=== PATIENT | female | born 1990 | race Caucasian/White ===

== ENCOUNTER 2017-04-04 09:59 | Emergency (ER) | payer SELFPAY ==
[2017-04-04 10:20] VITALS: TEMP 99.9
[2017-04-04] MEDS ORDERED: SODIUM CHLORIDE 0.9% 1000ML 1,000 ML IVS ONE (10:23)
[2017-04-04] MEDS ORDERED: PROMETHAZINE HCL INJ 25 MG in SODIUM CHLORIDE 0.9% 50ML 50 ML IVPB ONE (10:24)
[2017-04-04] MEDS ORDERED: PROMETHAZINE HCL INJ 25 MG/ML VIAL ONE (10:40)
[2017-04-04] MEDS ORDERED: SODIUM CHLORIDE 0.9% 50ML 50 ML ONE (10:41)
--- NOTE | 2017-04-04 10:52 | CT ---
EXAM DESCRIPTION: CT abdomen and pelvis without contrast CLINICAL HISTORY: Periumbilical mass. Abdominal pain COMPARISON: None Available. TECHNIQUE: Noncontrast spiral CT with coronal and sagittal reformatted images. This exam was performed according to our departmental dose-optimization program, which includes automated exposure control, adjustment of the mA and/or kV according to patient size and/or use of iterative reconstruction technique. FINDINGS: Visualized lung bases are clear. Heart size is normal No abnormality of the liver. Previous cholecystectomy. No biliary duct dilation No abnormality of the spleen, pancreas or adrenal glands 3 tiny 1 mm nonobstructing calculi lower pole right kidney. No other renal stone disease. No hydronephrosis, ureterolithiasis or bladder calculus Pelvic viscera normal. No pelvic soft tissue mass lesion, adenopathy or free fluid. Normal appearance of the terminal ileum and appendix. Moderate amount of stool in the colon, constipation. No mechanical bowel obstruction. No mass lesion or inflammatory process. Omentum, small bowel mesentery and retroperitoneum are unremarkable. No anterior abdominal wall hernia. No periumbilical cutaneous, subcutaneous or intra-abdominal wall mass lesion IMPRESSION: 3 tiny nonobstructing calculi lower pole right kidney Constipation. No acute inflammatory process identified in the abdomen or pelvis Electronically signed by: José Miguel Mendiola MD 04/04/2017 10:51 AM CDT
[2017-04-04] MEDS ORDERED: LIDOCAINE VIS-MYLANTA 30 ML UD PO ONE (11:01)
[2017-04-04] MEDS ORDERED: HYDROmorphone HCL INJ 2 MG/ML VIAL IV ONE (11:29)
[2017-04-04] MEDS ORDERED: ACETAMINOPHEN 325 MG TAB PO ONE (11:50)
[2017-04-04] MEDS ORDERED: PIPERACILLIN/TAZOBACTAM 3.375 GM in SODIUM CHLORIDE 0.9% 100ML 100 ML IVPB ONE (11:50)
[2017-04-04] MEDS ORDERED: SODIUM CHLORIDE 0.9% 100ML 100 ML IVPB ONE (11:58)
[2017-04-04] MEDS ORDERED: PIPERACILLIN/TAZOBACTAM 3.375 GM VIAL IVPB ONE (11:58)
[2017-04-04] MEDS ORDERED: levoFLOXacin 500 MG TAB PO ONE (14:50)
[2017-04-04] MEDS ORDERED: metroNIDAZOLE IV PREMIX 500MG 500 MG in PREMIX BAG 1 BAG IVPB ONE (14:50)
--- NOTE | 2017-04-04 14:53 | ED.PDOC ---
History of Present Illness - General Chief Complaint: Abdominal Pain Stated Complaint: abdomial pain Time Seen by Provider: 04/04/17 10:02 Source: patient Exam Limitations: no limitations - History of Present Illness Initial Comments: the patient is a 27-year-old female presenting to the emergency room secondary to abdominal painstarting yesterday evening but getting worse throughout the night. At around 4 AM this morning she started throwing up. She also noted some increased vaginal discharge over the previous weeks. Abdominal pain is somewhat roving. It is primarily in the lower abdomen but there is some mild left periumbilical discomfort as well. The patient does have some voluntary guarding. There is a questionable nodule just left of the umbilicus. She has been passing gas and having bowel movements. No syncope or near syncope. She is hurting significantly. No chest pain or shortness of breath. No recent trauma. Her onlyprevious abdominal surgery is a cholecystectomy. she does think she has been having fevers.urine hCG was negative at her clinic appointment today. Timing/Duration: 24 hours Severity: moderate Improving Factors: nothing Worsening Factors: movement Associated Symptoms: fever/chills, loss of appetite, malaise, nausea/vomiting Allergies/Adverse Reactions: Allergies NO KNOWN ALLERGY Allergy (Verified 04/04/17 10:14) Home Medications: Ambulatory Orders Pbnlqeezjbiyk-Axuv-Vukpujypps [Fioricet] 1 ea PO Q8H PRN #21 tab 04/04/17 Fluticasone/Salmeterol 250/50 [Advair Diskus] 1 puff INH PRN 04/04/17 Metronidazole 500 mg PO BID #30 tab 04/04/17 Ondansetron [Zofran Odt] 4 mg PO Q4H PRN #10 tab 04/04/17 Singulair 10 mg PO DAILY 04/04/17 levoFLOXacin [Levaquin] 500 mg PO QDPC #14 tab 04/04/17 Review of Systems - Review of Systems Constitutional: States: fever, malaise EENTM: States: no symptoms reported Respiratory: States: no symptoms reported Cardiology: States: no symptoms reported Gastrointestinal/Abdominal: States: see HPI, abdominal pain, nausea, vomiting Genitourinary: States: discharge Musculoskeletal: States: no symptoms reported Skin: States: no symptoms reported Neurological: States: no symptoms reported Endocrine: States: no symptoms reported All other Systems: No Change from Baseline Past Medical History (General) - Patient Medical History Hx Asthma: Yes Hx Diabetes: No Surgical History: cholecystectomy - Vaccination History Hx Influenza Vaccination: - unknown - Social History Hx Tobacco Use: No Hx Alcohol Use: No Hx Substance Use: Yes - recovering - Activities of Daily Living Hospice Agency (if applicable):: None - Female History Patient is a Female of Child Bearing Age (10 -59 yrs old): Yes Patient : No - Triage Comment ED Triage Comment: LMP 1 1/2 month ago Family Medical History - Family History Mother Family History: Unknown Physical Exam - Physical Exam General Appearance: Alert, No apparent distress, Obvious distress Eye Exam: bilateral normal Ears, Nose, Throat: hearing grossly normal, normal ENT inspection - with the exception of several dental caries and likely dental root infection on the left mandible Neck: non-tender, full range of motion, supple Respiratory: chest non-tender, lungs clear, normal breath sounds, no respiratory distress, no accessory muscle use Cardiovascular/Chest: normal peripheral pulses, regular rate, rhythm, no edema Peripheral Pulses: radial,right: 2+, radial,left: 2+, dorsalis pedis,right: 2+, dorsalis pedis,left: 2+ Gastrointestinal/Abdominal: guarding, other - no definite rebound or peritoneal signs. Again there is a questionable fullness to the left side of the umbilicus. Rectal Exam: other - pelvic exam shows a significant yellow vaginal discharge. There is significant cervical motion tenderness. There is adnexal tenderness as well. 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 CT scan was performed to rule out surgical pathology and none was found. The patient does appear to have pelvic inflammatory disease. Gonorrhea and chlamydia tests are send out test. She does need to follow-up with her primary care doctor early this coming week for the results of these. She is being treated empirically with Levaquin and metronidazole for 14 days. She does need to take these medications with food. Additionally she'll be written for Zofran for nausea control. She also needs to pecan picker some pjrm-mud-tqnswds Pepcid and take that twice a day while she is taking these medications. She needs to keep herself well-hydrated. She will be written for Fioricet for pain control and she can also take [id number] ibuprofen or Aleve as needed. ER warnings were given. - Results/Orders Results/Orders: GC and Chlamydia are pending. Wet prep only shows an increased number of white blood cells. No clue cells. No yeast. No trichomoniasis. cT scan of abdomen and pelvis shows no definitive acute pathology. There are chronic changes. No abscess formation. No bowel obstruction. No obvious volvulus. No incarcerated hernias. No appendicitis. Laboratory Results - last 24 hr 04/04/17 04/04/17 04/04/17 10:35 10:35 10:35 WBC 14.7 H RBC 4.18 L Hgb 13.3 Hct 38.9 MCV 93.1 MCH 31.8 H MCHC 34.2 RDW 12.5 Plt Count 226 MPV 10.2 Absolute Neuts (auto) 12.80 H Absolute Lymphs (auto) 0.70 L Absolute Monos (auto) 1.10 H Absolute Eos (auto) 0.10 Absolute Basos (auto) 0.10 Neutrophils % 87.1 H Lymphocytes % 4.7 L Monocytes % 7.4 Eosinophils % 0.4 L Basophils % 0.4 PT 12.3 INR 1.090 PTT (SP) 28.2 Sodium 136 Potassium 3.4 L Chloride 104 Carbon Dioxide 25 Anion Gap 10.4 L BUN 8 Creatinine 0.57 L BUN/Creatinine Ratio 14.0 Random Glucose 106 H Serum Osmolality 270.7 L Lactic Acid Calcium 8.6 Total Bilirubin 0.8 AST 15 ALT 9 L Alkaline Phosphatase 63 Creatine Kinase 55 CK-MB (CK-2) 0.6 CK-MB (CK-2) % Not Reportable Troponin I < 0.02 Serum Total Protein 7.0 Albumin 4.0 Globulin 3.0 Albumin/Globulin Ratio 1.3 Amylase 31 Lipase 20 L Urine Color Urine Appearance Urine pH Ur Specific Sharps Urine Protein Urine Glucose (UA) Urine Ketones Urine Blood Urine Nitrite Urine Bilirubin Urine Urobilinogen Ur Leukocyte Esterase Urine RBC Urine WBC Ur Epithelial Cells Urine Bacteria 04/04/17 04/04/17 10:55 11:47 WBC RBC Hgb Hct MCV MCH MCHC RDW Plt Count MPV Absolute Neuts (auto) Absolute Lymphs (auto) Absolute Monos (auto) Absolute Eos (auto) Absolute Basos (auto) Neutrophils % Lymphocytes % Monocytes % Eosinophils % Basophils % PT INR PTT (SP) Sodium Potassium Chloride Carbon Dioxide Anion Gap BUN Creatinine BUN/Creatinine Ratio Random Glucose Serum Osmolality Lactic Acid 1.0 Calcium Total Bilirubin AST ALT Alkaline Phosphatase Creatine Kinase CK-MB (CK-2) CK-MB (CK-2) % Troponin I Serum Total Protein Albumin Globulin Albumin/Globulin Ratio Amylase Lipase Urine Color Yellow Urine Appearance Clear Urine pH 7.0 Ur Specific Sharps 1.010 Urine Protein Negative Urine Glucose (UA) Negative Urine Ketones Negative Urine Blood Small H Urine Nitrite Negative Urine Bilirubin Negative Urine Urobilinogen 0.2 Ur Leukocyte Esterase Small H Urine RBC 1-3 Urine WBC 3-5 H Ur Epithelial Cells 3-5 Urine Bacteria 1+ Departure - Departure Clinical Impression: Pelvic inflammatory disease Disposition: Discharge to Home or Self Care Condition: Fair Departure Forms: ED Discharge - Pt. Copy, Patient Portal Self Enrollment Instructions: DI for Pelvic Inflammatory Disease Diet: regular diet Activity: other - pelvic rest Referrals: Kaiser Ruiz MD [Primary Care Provider] - 1-5 Days Prescriptions: Pqbympqvbcopf-Synv-Uisevxevbn [Fioricet] 1 ea PO Q8H PRN #21 tab PRN Reason: Pain levoFLOXacin [Levaquin] 500 mg PO QDPC #14 tab Metronidazole 500 mg PO BID #30 tab Ondansetron [Zofran Odt] 4 mg PO Q4H PRN #10 tab PRN Reason: Vomiting Home Medications: Ambulatory Orders Gptlojymyumgg-Gfia-Cjtxxrghrk [Fioricet] 1 ea PO Q8H PRN #21 tab 04/04/17 Fluticasone/Salmeterol 250/50 [Advair Diskus] 1 puff INH PRN 04/04/17 Metronidazole 500 mg PO BID #30 tab 04/04/17 Ondansetron [Zofran Odt] 4 mg PO Q4H PRN #10 tab 04/04/17 Singulair 10 mg PO DAILY 04/04/17 levoFLOXacin [Levaquin] 500 mg PO QDPC #14 tab 04/04/17 Additional Instructions: the patient is a 27-year-old female presenting to the emergency room secondary to fairly significant abdominal pain of short duration. CT scan was performed to rule out surgical pathology and none was found. The patient does appear to have pelvic inflammatory disease. Gonorrhea and chlamydia tests are send out test. She does need to follow-up with her primary care doctor early this coming week for the results of these. She is being treated empirically with Levaquin and metronidazole for 14 days. She does need to take these medications with food. Additionally she'll be written for Zofran for nausea control. She also needs to pecan picker some hrgo-rqu-fyorniw Pepcid and take that twice a day while she is taking these medications. She needs to keep herself well-hydrated. She will be written for Fioricet for pain control and she can also take ptzm-yii-vhuelpm ibuprofen or Aleve as needed. ER warnings were given. the antibiotic should also help with her current dental infection. She should also follow-up with her circulating process inspector for a Pap smear.
[2017-04-04] MEDS ORDERED: KETOROLAC TROMETHAMINE INJ 30 MG/ML VIAL IM ONE (14:55)
[2017-04-04] MEDS ORDERED: metroNIDAZOLE IV PREMIX 500MG 100 ML IVPB ONE (15:03)
[2017-04-04 16:26] VITALS: BP 101/64; O2SAT 97
== END 2017-04-04 16:20 | disposition home or self-care (01) ==
LOC: ER 09:59
DX: N73.9 Female pelvic inflammatory disease, unspecified (principal)
CPT/HCPCS: 36415; 74176; 80053; 81001; 82150; 82550; 82553; 83605; 83690; 84484; 85025; 85610; 85730; 87040; 87086; 87210; 87491; 87591; A4216; J1885; J2543; J2550; J3490; J7030; J7050